=== PATIENT | female | born 2000 | race American Indian/Alaskan Native ===

== ENCOUNTER 2020-09-13 14:38 | Outpatient (CLI) | payer MEDICAID ==
[2020-09-13 15:56] LABS: Bacteria,Urine 2+ /HPF (Negative); Bilirubin,Urine NEG (Negative); Blood,Urine NEG (Negative); Color,Urine Yellow (Yellow); Mucus,Urine FEW /HPF; Protein,Urine <15 mg/dL mg/dL (Negative); Urobilinogen,Urine < 2.0 mg/dL (<2.0)
[2020-09-13] MEDS ORDERED: LACTATED RINGERS 500 ML IV ONE (16:25)
[2020-09-13] MEDS ORDERED: TERBUTALINE 1 MG/1 ML INJ SUB-Q ONE (17:08)
[2020-09-13 17:24] VITALS: BP 126/70
== END 2020-09-13 17:48 | disposition home or self-care (01) ==
LOC: APU 14:38 → TRG 14:38
PROVIDERS: ATTEND Obstetrics & Gynecology
DX: O26.893 Other specified pregnancy related conditions, third trimester (principal); R42 Dizziness and giddiness; H53.8 Other visual disturbances; O62.9 Abnormality of forces of labor, unspecified; Z3A.31 31 weeks gestation of pregnancy
CPT/HCPCS: 36415; 59025; 81001; 84112; 87086; 96360; 96372; J3105; J7120; 96361

== ENCOUNTER 2020-10-30 22:02 | Outpatient (CLI) | payer MEDICAID ==
[2020-10-30 22:18] VITALS: BP 101/72
== END 2020-10-30 23:00 | disposition home or self-care (01) ==
LOC: TRG 22:02 → APU 22:08 → TRG 23:00
PROVIDERS: ATTEND Obstetrics & Gynecology
DX: O47.1 False labor at or after 37 completed weeks of gestation (principal); Z3A.38 38 weeks gestation of pregnancy
CPT/HCPCS: 59025

== ENCOUNTER 2020-11-04 06:54 | Inpatient (IN) | payer MEDICAID ==
[2020-11-04] MEDS ORDERED: AMPICILLIN/NS 2 GM/100 ML 2 GM/100 ML BAG IV ONE (11:23)
--- NOTE | 2020-11-04 11:34 | History and Physical Report ---
History of Present Illness Date of examination: 11/04/20 Chief complaint: Contractions History of present illness: EDC Confirmation: 11/13/2020 Past History : 3 Living Children: 0 Elect. Ab: 1 Spont. 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 Past Surgical History Abnormal PAP: negative ARLEEN Exposure: negative Infertility: negative Uterine Anomaly: negative Uterine Surgery (not C/S): negative Other Gynecologic Problems: negative Medical History Comments: negative Family Hx: DM HTN CA-colon ca(MGF) h/o DVT-mother Social Hx: no e/t/d single Infection History Hx of STD: none HIV Risk Eval: no Varicella/Chicken Pox Status: Immunized Genetic History Congenital Heart Defect: Mom: no Dad: no Immanuel Disease: Mom: no Dad: no Thalassemia Mom: no Dad: no Neural Tube Defect Mom: no Dad: no Down's Syndrome Mom: no Dad: no Nixon-Sachs Mom: no Dad: no Sickle Cell Disease/Trait Mom: no Dad: no Hemophilia Mom: no Dad: no Muscular Dystrophy Mom: no Dad: no Cystic Fibrosis Mom: no Dad: no Silverio Chorea Mom: no Dad: no Mental Retardation Mom: no Dad: no Fragile X Mom: no Dad: no Other Genetic/Chromosomal Disorder Mom: no Dad: no Child w/other defect Mom: no Dad: no Comments/Counseling: cousin-autism Enviromental Exposures Xray Exposure: no Medication, drug, or alcohol use since LMP: no Chemical/Other Exposure: no Exposure to Cat Liter: no Hx of Parvovirus (Fifth Disease): no Occupational Exposure to Children: none Active Medications (reviewed today): PNV () Current Allergies (reviewed today): * ZOFRAN (Critical) * ORANGES (Critical) * KIWI (Critical) Past History Past Medical History: other (see HPI) Past Surgical History: other (see HPI) 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) Family/Genetic History: other (see HPI) - Obstetrical History Expected Date of Delivery: 11/13/20 Actual Gestation: 38 Week(s) 5 Day(s) : 3 Para: 0 Hx # Term Pregnancies: 0 Number of Pregnancies: 0 Spontaneous Abortions: 1 Induced : 1 Number of Living Children: 0 Medications and Allergies Allergies Allergy/AdvReac Type Severity Reaction Status Date / Time No Known Allergies Allergy Verified 09/13/20 15:21 Home Medications Medication Instructions Recorded Confirmed Last Taken Type Prenat Vit 17/Iron/Folic/Om3,6 1 each PO DAILY 09/13/20 09/13/20 09/13/20 History [Elite-Ob 400 Capsule] Active Meds: Active Medications Acetaminophen (Acetaminophen 325 Mg Tab) 650 mg PO Q4H PRN PRN Reason: Pain, Mild (1-3) Butorphanol Tartrate (Butorphanol 2 Mg/1 Ml Inj) 2 mg IV Q2H PRN PRN Reason: Pain , Severe (7-10) Carboprost Tromethamine (Carboprost Tromethamine 250 Mcg/1 Ml Inj) 250 mcg IM ONCE PRN PRN Reason: Uterine Bleeding Ephedrine Sulfate (Ephedrine Sulfate 50 Mg/1 Ml Inj) 10 mg IV Q2M PRN PRN Reason: Hypotension Fentanyl (Fentanyl 100 Mcg/2 Ml Inj) 100 mcg IV Q2H PRN PRN Reason: Pain,Severe (7-10) LABOR PAIN Oxytocin/Sodium Chloride (Pitocin/Ns 30 Unit/500ml) 30 units in 500 mls @ 2 mls/hr IV TITR KOBI; Protocol Lactated Ringer's (Lactated Ringers) 1,000 mls @ 125 mls/hr IV DIRECT KOBI Oxytocin/Sodium Chloride (Pitocin/Ns 30 Unit/500ml) 30 units in 500 mls @ 40 mls/hr IV TITR KOBI; Protocol Ampicillin Sodium (Ampicillin/Ns 2 Gm/100 Ml) 2 gm in 100 mls @ 100 mls/hr IV ONCE ONE; Protocol Stop: 11/04/20 12:22 Ampicillin Sodium (Ampicillin/Ns 1 Gm/50 Ml) 1 gm in 50 mls @ 100 mls/hr IV Q4H KOBI; Protocol Lidocaine (Lidocaine (2%) 20 Mg/1 Ml Vial 20 Ml Mdv) 20 ml INFILTRATI ONCE ONE Stop: 11/04/20 11:24 Loperamide HCl (Loperamide 2 Mg Cap) 2 mg PO ONCE PRN PRN Reason: give with Hemabate Methylergonovine Maleate (Methylergonovine Maleate 0.2 Mg/Ml Vial) 0.2 mg IM ONCE PRN PRN Reason: Uterine Bleeding Mineral Oil (Mineral Oil 30 Ml Oral Liqd) 30 ml PO QHS PRN PRN Reason: Constipation Misoprostol (Misoprostol 200 Mcg Tab) 800 mcg [place] ONCE PRN PRN Reason: Uterine Bleeding Nalbuphine HCl (Nalbuphine 10 Mg/1 Ml Inj) 10 mg IV Q2H PRN PRN Reason: Pain, Moderate (4-6) Ondansetron HCl (Ondansetron 4 Mg/2 Ml Inj) 4 mg IV Q8H PRN PRN Reason: Nausea And Vomiting Oxytocin (Oxytocin 10 Unit/1 Ml Inj) 10 unit IM ONCE PRN PRN Reason: Uterine Bleeding Terbutaline Sulfate (Terbutaline 1 Mg/1 Ml Inj) 0.25 mg SUB-Q ONCE PRN PRN Reason: Hyperstimulation/Hypertonicity Review of Systems All systems: negative - Vital Signs Vital signs: Vital Signs Temp Pulse Resp BP 98.5 F 98 H 16 108/68 11/04/20 08:42 11/04/20 08:42 11/04/20 08:42 11/04/20 08:42 Temp Pulse Resp BP Pulse Ox 98.5 F 98 H 16 108/68 11/04/20 08:42 11/04/20 08:42 11/04/20 08:42 11/04/20 08:42 - Physical Exam Breasts: Positive: normal Cardiovascular: Regular rate Lungs: Positive: Clear to auscultation, Normal air movement Abdomen: Positive: normal appearance, soft, normal bowel sounds. Negative: distention, tenderness, guarding Genitourinary (Female): Positive: normal external genitalia, normal perenium (no s/s HSV lesion) Vulva: both: normal Vagina: Positive: normal moisture Uterus: Positive: normal size, normal contour Anus/Rectum: Positive: normal perianal skin Extremities: Positive: normal Deep Tendon Reflex Grade: Normal +2 - Obstetrical FHR: category 1 Uterine Contraction Monitor Mode: External Cervical Dilatation: 4 (cephalic) Cervical Effacement Percentage: 90 station: 0 Uterine Contraction Frequency (min): 2-4 Uterine Contraction Duration: 60 Uterine Contraction Pattern: Regular Uterine Tone Measurement Phase: Contraction Uterine Contraction Intensity: Moderate Results All other labs normal. Assessment and Plan 20y/o @ 38+5 weeks, arrived in labor. SVE changed from 2-4 while in triage. Admission ordered in EMR. GBS +. - Patient Problems (1) 38 weeks gestation of Current Visit: Yes Status: Acute (2) GBS (group B Streptococcus carrier), +RV culture, currently Current Visit: Yes Status: Acute Plan to address problem: Ampicillin q4hrs until delivery (3) HSV-2 (herpes simplex virus 2) infection Current Visit: Yes Status: Acute Plan to address problem: Vulva and perineum inspected w/o lesion pt denies s/s of outbreak
[2020-11-04] MEDS ORDERED: ACETAMINOPHEN 325 MG TAB PO PRN (12:00)
[2020-11-04] MEDS ORDERED: OXYTOCIN DRIP 30 UNITS/500 ML BAG IV SCH ×2 (12:00→12:30)
[2020-11-04] MEDS ORDERED: LIDOCAINE (2%) 20 MG/1 ML VIAL 20 ML MDV INFILTRATI SCH (12:30)
[2020-11-04] MEDS ORDERED: ONDANSETRON 4 MG/2 ML INJ IV PRN (12:30)
[2020-11-04] MEDS ORDERED: BUTORPHANOL 2 MG/1 ML INJ IV PRN (12:30)
[2020-11-04] MEDS ORDERED: miSOPROStol 200 MCG TAB PR PRN (12:30)
[2020-11-04] MEDS ORDERED: METHYLERGONOVINE MALEATE 0.2 MG/ML VIAL IM PRN (12:30)
[2020-11-04] MEDS ORDERED: OXYTOCIN 10 UNIT/1 ML INJ IM PRN (12:30)
[2020-11-04] MEDS ORDERED: ePHEDrine SULFATE 50 MG/1 ML INJ IV PRN ×2 (12:30→17:53)
[2020-11-04] MEDS ORDERED: TERBUTALINE 1 MG/1 ML INJ SUB-Q PRN (12:30)
[2020-11-04] MEDS ORDERED: LOPERAMIDE 2 MG CAP PO PRN (12:30)
[2020-11-04] MEDS ORDERED: CARBOPROST TROMETHAMINE 250 MCG/1 ML INJ IM PRN (12:30)
[2020-11-04] MEDS ORDERED: NalbUPHINE 10 MG/1 ML INJ IV PRN (12:30)
[2020-11-04] MEDS ORDERED: fentaNYL 100 MCG/2 ML INJ IV PRN (12:30)
[2020-11-04] MEDS ORDERED: MINERAL OIL 30 ML ORAL LIQD PO PRN (13:00)
[2020-11-04] MEDS: LACTATED RINGERS 1,000 ML IV SCH ×2 (13:00→18:59)
[2020-11-04 13:22] LABS: Hemoglobin 11.1 gm/dl (10.1-14.3); Mean Corpuscular HGB Conc 33 % (30-34); Mean Corpuscular Volume 81 fl (79-97); Platelet Count 211 K/mm3 (140-440); Red Blood Count 4.21 M/mm3 (3.65-5.03); Red Cell Distribution Width 14.1 % (13.2-15.2)
--- NOTE | 2020-11-04 15:32 | Progress Note ---
Assessment and Plan patient resting, reports pain relief from IV sedation. denies need for additional medication at this time. - Patient Problems (1) 38 weeks gestation of Current Visit: Yes Status: Acute (2) GBS (group B Streptococcus carrier), +RV culture, currently Current Visit: Yes Status: Acute (3) HSV-2 (herpes simplex virus 2) infection Current Visit: Yes Status: Acute Subjective - Subjective Date of service: 11/04/20 Principal diagnosis: IUP @ 38+5; labor, GBS + Interval history: EDC Confirmation: 11/13/2020 Past History : 3 Living Children: 0 Elect. Ab: 1 Spont. 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 Past Surgical History Abnormal PAP: negative ARLEEN Exposure: negative Infertility: negative Uterine Anomaly: negative Uterine Surgery (not C/S): negative Other Gynecologic Problems: negative Medical History Comments: negative Family Hx: DM HTN CA-colon ca(MGF) h/o DVT-mother Social Hx: no e/t/d single Infection History Hx of STD: none HIV Risk Eval: no Varicella/Chicken Pox Status: Immunized Genetic History Congenital Heart Defect: Mom: no Dad: no Immanuel Disease: Mom: no Dad: no Thalassemia Mom: no Dad: no Neural Tube Defect Mom: no Dad: no Down's Syndrome Mom: no Dad: no Nixon-Sachs Mom: no Dad: no Sickle Cell Disease/Trait Mom: no Dad: no Hemophilia Mom: no Dad: no Muscular Dystrophy Mom: no Dad: no Cystic Fibrosis Mom: no Dad: no Silverio Chorea Mom: no Dad: no Mental Retardation Mom: no Dad: no Fragile X Mom: no Dad: no Other Genetic/Chromosomal Disorder Mom: no Dad: no Child w/other defect Mom: no Dad: no Comments/Counseling: cousin-autism Enviromental Exposures Xray Exposure: no Medication, drug, or alcohol use since LMP: no Chemical/Other Exposure: no Exposure to Cat Liter: no Hx of Parvovirus (Fifth Disease): no Occupational Exposure to Children: none Active Medications (reviewed today): PNV () Current Allergies (reviewed today): * ZOFRAN (Critical) * ORANGES (Critical) * KIWI (Critical) Patient reports: movement normal, contractions Objective - Vital Signs Vital Signs: Vital Signs - 12hr 11/04/20 11/04/20 11/04/20 08:42 13:01 14:30 Temperature 98.5 F 98.5 F Pulse Rate 98 H 97 H Respiratory 16 20 Rate Blood Pressure 110/67 Blood Pressure 108/68 [Right] O2 Sat by Pulse Oximetry 11/04/20 11/04/20 11/04/20 14:31 14:36 14:41 Temperature Pulse Rate 90 88 89 Respiratory Rate Blood Pressure Blood Pressure [Right] O2 Sat by Pulse 98 98 99 Oximetry 11/04/20 11/04/20 11/04/20 14:46 14:51 14:56 Temperature Pulse Rate 103 H 91 H 82 Respiratory Rate Blood Pressure Blood Pressure [Right] O2 Sat by Pulse 97 99 97 Oximetry 11/04/20 11/04/20 15:01 15:06 Temperature Pulse Rate 99 H 90 Respiratory Rate Blood Pressure Blood Pressure [Right] O2 Sat by Pulse 97 98 Oximetry - Exam Breasts: normal Cardiovascular: Regular rate Lungs: Clear to auscultation, Normal air movement Abdomen: Present: normal appearance, soft Vulva: both: normal Uterus: Present: normal, fundal height above umbilicus FHR: category 1 Uterine Contraction Monitor Mode: External Cervical Dilatation: 5 (BBOW) Cervical Effacement Percentage: 90 station: 0 Uterine Contraction Frequency (min): 4-5 Uterine Contraction Duration: 60 Uterine Contraction Pattern: Regular Uterine Tone Measurement Phase: Contraction Uterine Contraction Intensity: Moderate Extremities: normal Deep Tendon Reflex Grade: Normal +2 - Labs Labs: Abnormal Labs 11/04/20 12:30 WBC 12.3 H MCH 27 L Laboratory Results - last 24 hr 11/04/20 11/04/20 11/04/20 12:30 12:30 12:30 WBC 12.3 H RBC 4.21 Hgb 11.1 Hct 34.0 MCV 81 MCH 27 L MCHC 33 RDW 14.1 Plt Count 211 Syphilis IgG Antibody Nonreactive Antibody Screen Negative
[2020-11-04] MEDS ORDERED: AMPICILLIN/NS 1 GM/50 ML 1 GM/50 ML BAG IV SCH (16:00)
--- NOTE | 2020-11-04 17:37 | Event Note ---
Date: 11/04/20 No significant cervical change since last SVE, patient reports pain increased. discussed increasing pitocin and/or AROM to help labor progress. Patient concerned about getting epidural d/t previous back issues. Renetta ABDULLAHI will come see patient to assess. Pitocin increased to 4 via pump. FHT CAT 1, ctx irregular.
[2020-11-04] MEDS ORDERED: NALOXONE 2 MG/2 ML INJ IV PRN (17:53)
--- NOTE | 2020-11-04 17:56 | Anesthesia Consultation ---
Anesthesia Consult and Med Hx Date of service: 11/04/20 - Airway Anesthetic Teeth Evaluation: Good ROM Head & Neck: Adequate Mental/Hyoid Distance: Adequate Mallampati Class: Class II Intubation Access Assessment: Good - Pulmonary Exam CTA: Yes - Cardiac Exam Cardiac Exam: RRR - Pre-Operative Health Status ASA Pre-Surgery Classification: ASA2 Proposed Anesthetic Plan: Epidural - Pulmonary Hx Smoking: No Hx Asthma: No Hx Respiratory Symptoms: No SOB: No COPD: No Home Oxygen Therapy: No Hx Pneumonia: No Hx Sleep Apnea: No - Cardiovascular System Hx Hypertension: No Hx Coronary Artery Disease: No Hx Heart Attack/AMI: No Hx Angina: No Hx Percutaneous Transluminal Coronary Angioplasty (PTCA): No Hx Cardia Arrhythmia: No Hx Pacemaker: No Hx Internal Defibrillator: No Hx Valvular Heart Disease: No Hx Heart Murmur: No Hx Peripheral Vascular Disease: No - Central Nervous System Hx Neuromuscular Disorder: No Hx Seizures: No CVA: No Hx Back Pain: Yes (hx of Scoliosis and Buldging Disc ) Hx Psychiatric Problems: No - Gastrointestinal Hx Ulcer: No Hx Gastroesophageal Reflux Disease: Yes - Endocrine Hx Renal Disease: No Hx End Stage Renal Disease: No Hx Cirrhosis: No Hx Liver Disease: No Hx Insulin Dependent Diabetes: No Hx Non-Insulin Dependent Diabetes: No Hx Thyroid Disease: No Hx Hypothyroidism: No Hx Hyperthyroidism: No - Hematic Hx Anemia: No Hx Sickle Cell Disease: No - Other Systems Hx Alcohol Use: No Hx Substance Use: No Hx Cancer: No Hx Obesity: No
[2020-11-04] MEDS ORDERED: fentaNYL-BUPIV 2 MCG/ML-0.125% 200 MCG/100 ML BAG EPIDURAL SCH (18:00)
--- NOTE | 2020-11-04 19:04 | Progress Note ---
Labor Epidural - Labor Epidural Start Time: 18:01 Stop Time: 18:21 Performed by:: COOPER DURAND Procedure: Patient is requesting a laboring epidural for laboring pain. Patient IDed, H&P reviewed, all questions and concerns were answered, and consent was signed. Timeout was performed at bedside. Patient in sitting position. Sterile prep and drape was performed. [4] ml of 1% lidocaine skin wheal at L[3]- L [4]. 18- gauge Touhy epidural needle was advanced to loss of resistance with air technique to 6cm. Negative CSF negative blood via Tuohy needle. #27g Spinal needle clear, free flowing CSF, Pecedex 10 mcg. Epidural catheter advanced to [10] centimeters. [negative] Aspiration [negative] test dose. Sterile dressing applied. Patient tolerated procedure.
--- NOTE | 2020-11-04 19:22 | Progress Note ---
Assessment and Plan pt comfortable s/p epidural. SVE now 7 w/ BBOW. AROM'd with light mec- large amount of fluid. Will continue to monitor, anticipate . - Patient Problems (1) 38 weeks gestation of Current Visit: Yes Status: Acute (2) GBS (group B Streptococcus carrier), +RV culture, currently Current Visit: Yes Status: Acute Plan to address problem: Ampicillin q4hrs until delivery (3) HSV-2 (herpes simplex virus 2) infection Current Visit: Yes Status: Acute Subjective - Subjective Date of service: 11/04/20 Principal diagnosis: IUP @ 38+5; labor, GBS + Interval history: EDC Confirmation: 11/13/2020 Past History : 3 Living Children: 0 Elect. Ab: 1 Spont. 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 Past Surgical History Abnormal PAP: negative ARLEEN Exposure: negative Infertility: negative Uterine Anomaly: negative Uterine Surgery (not C/S): negative Other Gynecologic Problems: negative Medical History Comments: negative Family Hx: DM HTN CA-colon ca(MGF) h/o DVT-mother Social Hx: no e/t/d single Infection History Hx of STD: none HIV Risk Eval: no Varicella/Chicken Pox Status: Immunized Genetic History Congenital Heart Defect: Mom: no Dad: no Immanuel Disease: Mom: no Dad: no Thalassemia Mom: no Dad: no Neural Tube Defect Mom: no Dad: no Down's Syndrome Mom: no Dad: no Nixon-Sachs Mom: no Dad: no Sickle Cell Disease/Trait Mom: no Dad: no Hemophilia Mom: no Dad: no Muscular Dystrophy Mom: no Dad: no Cystic Fibrosis Mom: no Dad: no [place] Chorea Mom: no Dad: no Mental Retardation Mom: no Dad: no Fragile X Mom: no Dad: no Other Genetic/Chromosomal Disorder Mom: no Dad: no Child w/other defect Mom: no Dad: no Comments/Counseling: cousin-autism Enviromental Exposures Xray Exposure: no Medication, drug, or alcohol use since LMP: no Chemical/Other Exposure: no Exposure to Cat Liter: no Hx of Parvovirus (Fifth Disease): no Occupational Exposure to Children: none Active Medications (reviewed today): PNV () Current Allergies (reviewed today): * ZOFRAN (Critical) * ORANGES (Critical) * KIWI (Critical) Patient reports: no new complaints Objective - Vital Signs Vital Signs: Vital Signs - 12hr 11/04/20 11/04/20 11/04/20 08:42 13:01 14:30 Temperature 98.5 F 98.5 F Pulse Rate 98 H 97 H Respiratory 16 20 Rate Blood Pressure 110/67 Blood Pressure 108/68 [Right] O2 Sat by Pulse Oximetry 11/04/20 11/04/20 11/04/20 14:31 14:36 14:41 Temperature Pulse Rate 90 88 89 Respiratory Rate Blood Pressure Blood Pressure [Right] O2 Sat by Pulse 98 98 99 Oximetry 11/04/20 11/04/20 11/04/20 14:46 14:51 14:56 Temperature Pulse Rate 103 H 91 H 82 Respiratory Rate Blood Pressure Blood Pressure [Right] O2 Sat by Pulse 97 99 97 Oximetry 11/04/20 11/04/20 11/04/20 15:01 15:06 15:43 Temperature Pulse Rate 99 H 90 107 H Respiratory Rate Blood Pressure Blood Pressure [Right] O2 Sat by Pulse 97 98 100 Oximetry 11/04/20 11/04/20 11/04/20 15:48 15:53 15:57 Temperature Pulse Rate 92 H 95 H 88 Respiratory Rate Blood Pressure 120/76 Blood Pressure [Right] O2 Sat by Pulse 100 98 Oximetry 11/04/20 11/04/20 11/04/20 15:58 16:03 16:08 Temperature Pulse Rate 86 100 H 94 H Respiratory Rate Blood Pressure Blood Pressure [Right] O2 Sat by Pulse 100 99 99 Oximetry 11/04/20 11/04/20 11/04/20 16:12 16:13 16:18 Temperature Pulse Rate 96 H 100 H 98 H Respiratory Rate Blood Pressure 114/73 Blood Pressure [Right] O2 Sat by Pulse 99 99 Oximetry 11/04/20 11/04/20 11/04/20 16:23 16:28 16:33 Temperature Pulse Rate 98 H 98 H 93 H Respiratory Rate Blood Pressure 113/68 Blood Pressure [Right] O2 Sat by Pulse 100 98 99 Oximetry 11/04/20 11/04/20 11/04/20 16:38 16:42 16:43 Temperature Pulse Rate 96 H 99 H 96 H Respiratory Rate Blood Pressure 117/69 Blood Pressure [Right] O2 Sat by Pulse 99 100 Oximetry 11/04/20 11/04/20 11/04/20 16:48 16:51 16:59 Temperature Pulse Rate 99 H 74 Respiratory Rate Blood Pressure Blood Pressure [Right] O2 Sat by Pulse 100 82 L 93 Oximetry 11/04/20 11/04/20 11/04/20 17:00 17:04 17:09 Temperature Pulse Rate 140 H 94 H 92 H Respiratory Rate Blood Pressure Blood Pressure [Right] O2 Sat by Pulse 90 100 99 Oximetry 11/04/20 11/04/20 11/04/20 17:12 17:14 17:19 Temperature Pulse Rate 93 H 96 H 95 H Respiratory Rate Blood Pressure 106/59 Blood Pressure [Right] O2 Sat by Pulse 100 99 Oximetry 11/04/20 11/04/20 11/04/20 17:24 17:27 17:29 Temperature Pulse Rate 105 H 88 89 Respiratory Rate Blood Pressure 98/67 Blood Pressure [Right] O2 Sat by Pulse 100 99 Oximetry 11/04/20 11/04/20 11/04/20 17:34 17:39 17:43 Temperature Pulse Rate 92 H 100 H 93 H Respiratory Rate Blood Pressure 105/64 Blood Pressure [Right] O2 Sat by Pulse 99 100 Oximetry 11/04/20 11/04/20 11/04/20 17:44 17:49 17:54 Temperature Pulse Rate 91 H 90 102 H Respiratory Rate Blood Pressure Blood Pressure [Right] O2 Sat by Pulse 100 100 92 Oximetry 11/04/20 11/04/20 11/04/20 17:55 17:59 18:02 Temperature Pulse Rate 102 H 91 H 112 H Respiratory Rate Blood Pressure Blood Pressure [Right] O2 Sat by Pulse 91 100 92 Oximetry 11/04/20 11/04/20 11/04/20 18:04 18:06 18:09 Temperature Pulse Rate 93 H 122 H 111 H Respiratory Rate Blood Pressure 113/77 126/73 Blood Pressure [Right] O2 Sat by Pulse 100 100 Oximetry 11/04/20 11/04/20 11/04/20 18:14 18:15 18:18 Temperature Pulse Rate 104 H 100 H 90 Respiratory Rate Blood Pressure 112/77 120/77 Blood Pressure [Right] O2 Sat by Pulse 100 Oximetry 11/04/20 11/04/20 11/04/20 18:19 18:21 18:23 Temperature Pulse Rate 93 H 101 H 102 H Respiratory Rate Blood Pressure 121/77 Blood Pressure [Right] O2 Sat by Pulse 100 93 Oximetry 11/04/20 11/04/20 11/04/20 18:24 18:27 18:29 Temperature Pulse Rate 93 H 100 H 108 H Respiratory Rate Blood Pressure 117/77 111/75 Blood Pressure [Right] O2 Sat by Pulse 99 100 Oximetry 11/04/20 11/04/20 11/04/20 18:30 18:33 18:34 Temperature Pulse Rate 108 H 106 H 97 H Respiratory Rate Blood Pressure 103/74 101/70 Blood Pressure [Right] O2 Sat by Pulse 100 Oximetry 11/04/20 11/04/20 11/04/20 18:36 18:39 18:42 Temperature Pulse Rate 95 H 100 H 112 H Respiratory Rate Blood Pressure 104/75 110/74 104/70 Blood Pressure [Right] O2 Sat by Pulse 100 Oximetry 11/04/20 11/04/20 11/04/20 18:44 18:45 18:48 Temperature Pulse Rate 100 H 108 H 109 H Respiratory Rate Blood Pressure 106/73 104/74 Blood Pressure [Right] O2 Sat by Pulse 100 Oximetry 11/04/20 11/04/20 11/04/20 18:49 18:51 18:54 Temperature Pulse Rate 98 H 105 H 102 H Respiratory Rate Blood Pressure 102/71 104/78 Blood Pressure [Right] O2 Sat by Pulse 100 100 Oximetry 11/04/20 11/04/20 11/04/20 18:57 18:59 19:00 Temperature Pulse Rate 96 H 106 H 106 H Respiratory Rate Blood Pressure 109/78 111/81 Blood Pressure [Right] O2 Sat by Pulse 100 Oximetry 11/04/20 11/04/20 11/04/20 19:03 19:04 19:05 Temperature Pulse Rate 96 H 126 H 116 H Respiratory Rate Blood Pressure 116/81 125/77 Blood Pressure [Right] O2 Sat by Pulse 100 Oximetry 11/04/20 11/04/20 11/04/20 19:09 19:12 19:14 Temperature Pulse Rate 101 H 99 H 110 H Respiratory Rate Blood Pressure 115/73 117/77 Blood Pressure [Right] O2 Sat by Pulse 100 100 Oximetry 11/04/20 19:15 Temperature Pulse Rate 109 H Respiratory Rate Blood Pressure 116/79 Blood Pressure [Right] O2 Sat by Pulse Oximetry - Exam Cardiovascular: Regular rate Lungs: Normal air movement Abdomen: Present: normal appearance, soft Vulva: both: normal Uterus: Present: normal, fundal height above umbilicus FHR: category 1 Uterine Contraction Monitor Mode: External Cervical Dilatation: 7 Cervical Effacement Percentage: 90 station: 0 Uterine Contraction Frequency (min): 3-3.5 Uterine Contraction Duration: 60 Uterine Contraction Pattern: Regular Uterine Tone Measurement Phase: Contraction Uterine Contraction Intensity: Strong/Firm Extremities: normal Deep Tendon Reflex Grade: Normal +2 - Labs Labs: Abnormal Labs 11/04/20 12:30 WBC 12.3 H MCH 27 L Laboratory Results - last 24 hr 11/04/20 11/04/20 11/04/20 12:30 12:30 12:30 WBC 12.3 H RBC 4.21 Hgb 11.1 Hct 34.0 MCV 81 MCH 27 L MCHC 33 RDW 14.1 Plt Count 211 Syphilis IgG Antibody Nonreactive Blood Type O POSITIVE Antibody Screen Negative
--- NOTE | 2020-11-04 21:39 | Procedure Note ---
OB Delivery Note - Delivery Date of Delivery: 11/04/20 [employer]: CAMELIA GARCIA Estimated blood loss: other (150) - Vaginal Delivery presentation: vertex Delivery position: OA (DEEPTI) Intrapartum events: meconium Delivery induction: none Delivery augmentation: rupture of membranes, pitocin Delivery monitor: external FHT, external uterine Route of delivery: Delivery placenta: spontaneous Delivery cord: 3 umbilical vessels Episiotomy: none Delivery laceration: none Anesthesia: epidural Delivery comments: Male infant born over intact perienum, cord clamped and cut, infant handed off to NICU nurse d/t meconium. 3 vessel cord.cord blood collected. Placenta del intact and complete. no lacerations to repair. EBL 150. Apagrs 11/26. all counts correct. mother and remain LDR stable. - A at 1 minute: 7 at 5 minutes: 9 Infant Gender: Male (6#13oz)
[2020-11-05] MEDS ORDERED: FERROUS SULFATE 325 MG TAB PO SCH (00:45)
[2020-11-05] MEDS ORDERED: WITCH HAZEL/ GLYCERIN PAD TP PRN (00:45)
[2020-11-05] MEDS ORDERED: LANOLIN/ZINC/DIMETHICONE (LANSINOH) 7 GM TP PRN ×2 (00:45)
[2020-11-05] MEDS ORDERED: ONDANSETRON 4 MG/2 ML INJ IV PRN (00:45)
[2020-11-05] MEDS ORDERED: BENZOCAINE/MENTHOL 20/0.5% TOP SPRAY 56 GM TP PRN (00:45)
[2020-11-05] MEDS ORDERED: MAGNESIUM HYDROXIDE (MOM) ORAL LIQD UDC PO PRN (00:45)
[2020-11-05] MEDS ORDERED: PROMETHAZINE 25 MG TAB PO PRN (00:45)
[2020-11-05] MEDS ORDERED: diphenhydrAMINE 25 MG CAP PO PRN (00:45)
[2020-11-05] MEDS: IBUPROFEN 600 MG TAB PO SCH ×2 (06:17→14:11)
[2020-11-05] MEDS ORDERED: PRENATAL VIT27-FE FUMARATE-FOLIC ACID VIT TAB PO SCH (10:00)
[2020-11-05 11:38] LABS: Hematocrit 31.6 % (30.3-42.9); Hemoglobin 10.6 gm/dl (10.1-14.3)
--- NOTE | 2020-11-05 12:57 | Post Anesthesia Evaluation ---
- Post Anesthesia Evaluation Patient Participated: Yes Airway Patent: Yes Stable Respiratory Function: Yes Nausea/Vomiting: No Temp > 96.8F: Yes Pain Manageable: Yes Adequeate Hydration: Yes Anesthesia Complications: No Block Receding Appropriately: Yes Patient on Ventilator: No
[2020-11-05] MEDS ORDERED: ACETAMINOPHEN 500 MG TAB PO PRN (19:34)
--- NOTE | 2020-11-05 19:36 | Progress Note ---
Assessment and Plan A: 20 y.o s/p . P: Continue with care. Discharge home in AM. Subjective - Subjective Date of service: 11/05/20 (Pt states feeling better than earlier in day. ) Principal diagnosis: s/p Patient reports: appetite normal, voiding normally, flatus, ambulating normally : doing well Objective - Vital Signs Latest vital signs: Vital Signs Temp Pulse Resp BP BP Pulse Ox 11/05/20 08:00 98.2 F 78 18 99/52 98 11/05/20 07:00 18 11/05/20 06:17 20 11/05/20 00:15 99.2 F 107 H 18 101/62 98 11/04/20 23:47 96 H 118/68 11/04/20 23:32 98 H 117/63 11/04/20 23:17 86 112/61 11/04/20 23:02 86 124/78 11/04/20 22:47 82 119/74 11/04/20 22:17 85 110/57 11/04/20 22:08 94 H 123/72 11/04/20 21:35 100.2 F H 113 H 154/86 11/04/20 21:33 121 H 132/103 11/04/20 21:32 40 L 124/89 11/04/20 20:17 103 H 126/70 11/04/20 20:14 96 H 89 11/04/20 20:12 104 H 80 L 11/04/20 20:09 85 97 11/04/20 20:06 94 H 92 11/04/20 20:04 91 H 100 11/04/20 20:03 112 H 131/60 11/04/20 19:59 98 H 92 11/04/20 19:54 91 H 100 11/04/20 19:49 92 H 88 11/04/20 19:48 91 H 112/85 11/04/20 19:44 129 H 100 11/04/20 19:42 95 H 87 11/04/20 19:39 92 H 99 Intake and Output 11/05/20 11/05/20 11/05/20 06:59 14:59 22:59 Intake Total 840 Output Total 700 Balance 140 Intake: Oral 360 Intake, Free Water 480 Output: Urine 700 Void 700 Other: Total, Intake Amount 360 Total, Output Amount 700 # Voids Void 1 - Exam Narrative Exam: Pt has a very strong desire to go home at this time. It is not 24 hours since . Spoke with patient regarding discharge home in the AM. Pt undecided about BC. Pt knows to call office on Sunday to schedule an appointment for her son's circumcision in 1 week and to schedule a visit in the office in 4 w eeks. Breasts: Present: deferred Cardiovascular: Present: Regular rate Lungs: Present: Normal air movement Abdomen: Present: normal appearance, soft Uterus: Present: normal, firm Extremities: Present: normal Deep Tendon Reflex Grade: Normal +2
[2020-11-05] MEDS: IBUPROFEN 800 MG TAB PO SCH (21:01)
[2020-11-06] MEDS ORDERED: TETANUS,DIPH,PERTUSS(ACELL) VACCINE 0.5 ML SYRINGE IM ONE (06:00)
--- NOTE | 2020-11-06 06:18 | Discharge Summary ---
Providers - Providers Date of Admission: 11/04/20 11:23 Date of discharge: 11/06/20 (Pt has a strong desire to go home.) Attending physician: FRANCY HERNANDEZ 11/05/20 00:45 Consult to Property Disposal Manager [CONS] Routine Reason For Exam: assistance with , SNS Primary care physician: FRANCY HERNANDEZ Hospitalization Reason for admission: active labor Delivery: Episiotomy: none Laceration: none Other procedures: none complications: none Hospital course: S: Pt doing well. Ambulating, voiding, and passing flatus. BC: Undecided. O: VSS. H/H 10.6/31.6, asymptomatic anemia of delivery. Fundus firm, minimal bleeding noted. A: 20 y.o. s/p . P: Discharge with instructions. Pt to schedule son's circumcision in 1 week. Pt to schedule visit in the office in 4 weeks. Condition at discharge: Good Disposition: DC-01 TO HOME OR SELFCARE Plan - Discharge Medications Prescriptions: Lidocain2.5%/Prilocai2.5% [Emla] 1 applic TP ONCE #1 tube Ibuprofen [Motrin] 800 mg PO Q8HR PRN #30 tablet PRN Reason: Pain, Moderate (4-6) - Provider Discharge Summary Activity: routine, no sex for 6 weeks, no heavy lifting 4 weeks, no strenuous exercise Diet: routine Instructions: routine Additional instructions: [] Smoking cessation referral if applicable(refer to patient education folder for contact #) [] Refer to [facility] Booklet Call your doctor immediately for: * Fever > 100.5 * Heavy vaginal bleeding ( >1 pad per hour) * Severe persistent headache * Shortness of breath * Reddened, hot, painful area to leg or breast * Drainage or odor from incision. * Keep incision clean and dry at all times and follow doctor's instructions regarding bathing/showering Congratulations on your baby boy!!! Please schedule his circumcision in the office in 1 week. Please schedule your visit in 4 weeks. You have been given a prescription for EMLA cream. Do not use it at home but bring it with you to your son's circumcision appointment. If you have any questions or concerns after discharge, please do not hesitate to call the office at [phone]. - Follow up plan Follow up: FRANCY HERNANDEZ MD [Primary Care Provider] - 7 Days
[2020-11-06] MEDS: IBUPROFEN 800 MG TAB PO SCH (06:50)
[2020-11-06 09:21] VITALS: BP 98/59
== END 2020-11-06 11:30 | disposition home or self-care (01) | DRG 774 ==
LOC: TRG 06:54 → APU 06:54 → TRG 11:23 → LD 16:52 → OB 11-05 00:43
PROVIDERS: ADMIT Obstetrics & Gynecology; ATTEND Obstetrics & Gynecology
PROC: 10E0XZZ Delivery of Products of Conception, External Approach (ICD-10-PCS; principal; 2020-11-04)
PROC: 3E0234Z Introduction of Serum, Toxoid and Vaccine into Muscle, Percutaneous Approach (ICD-10-PCS; 2020-11-04)
PROC: 3E0R3BZ Introduction of Anesthetic Agent into Spinal Canal, Percutaneous Approach (ICD-10-PCS; 2020-11-04)
PROC: 00HU33Z Insertion of Infusion Device into Spinal Canal, Percutaneous Approach (ICD-10-PCS; 2020-11-04)
PROC: 10907ZC Drainage of Amniotic Fluid, Therapeutic from Products of Conception, Via Natural or Artificial Opening (ICD-10-PCS; 2020-11-04)
DX: O99.824 Streptococcus B carrier state complicating childbirth (principal); O98.52 Other viral diseases complicating childbirth; O77.0 Labor and delivery complicated by meconium in amniotic fluid; Z3A.38 38 weeks gestation of pregnancy; Z37.0 Single live birth; Z20.822 Contact with and (suspected) exposure to COVID-19; Z23 Encounter for immunization; Z91.018 Allergy to other foods; B00.9 Herpesviral infection, unspecified; O99.62 Diseases of the digestive system complicating childbirth; K21.9 Gastro-esophageal reflux disease without esophagitis
CPT/HCPCS: 36415; 59025; 85014; 85018; 85027; 86592; 86850; 86900; 86901; 99211; G0378; G0463; J0290; J0595; J2590; J7120; U0003